=== PATIENT | female | born 1985 | race Caucasian/White ===

== ENCOUNTER 2025-03-22 17:13 | Emergency (ER) | payer MEDICAID, SELFPAY ==
[2025-03-22 17:14] VITALS: BMI 20.7
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
[2025-03-22 17:48] VITALS: BP 120/82; PULSE 89; RESP 18; TEMP 36.9; O2SAT 98
[2025-03-22 20:52] VITALS: BP 116/78; PULSE 84; RESP 19; TEMP 36.7; O2SAT 99
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
== END 2025-03-22 21:42 | disposition home or self-care (01) ==
LOC: SERX 21:45
PROVIDERS: Emergency Provider Emergency Medicine; PCP Physician Assistant
DX: S00.03XA Contusion of scalp, initial encounter (principal); S12.9XXA Fracture of neck, unspecified, initial encounter; S13.4XXA Sprain of ligaments of cervical spine, initial encounter; S16.1XXA Strain of muscle, fascia and tendon at neck level, initial encounter; V49.40XA Driver injured in collision with unspecified motor vehicles in traffic accident, initial encounter; Y92.410 Unspecified street and highway as the place of occurrence of the external cause
CPT/HCPCS: 70450; 72125; 99282